=== PATIENT | male | born 1945 | race Caucasian/White ===

== ENCOUNTER → 2016-06-27 | Outpatient (CLI) | payer MEDICARE, OTHER | LOC: RAD 08:33 | PROVIDERS: ATTEND Internal Medicine | DX: M25.50 Pain in unspecified joint (principal); Z85.46 Personal history of malignant neoplasm of prostate | CPT/HCPCS: 78306; A9503; Q9969 ==

== ENCOUNTER → 2016-07-18 | Outpatient (CLI) | payer MEDICARE, OTHER | LOC: RAD 09:31 | PROVIDERS: ATTEND Podiatrist Foot & Ankle Surgery | DX: Q72.819 Congenital shortening of unspecified lower limb (principal) | CPT/HCPCS: 77073 ==

== ENCOUNTER 2018-08-31 07:50 | Day surgery (SDC) | payer MEDICARE, OTHER ==
[~2018-08-31 07:50] MED LIST: BUPIVACAINE HCL 0.75% INJ/PF (7.5 MG/1 ML) 10 ML SDV OD PRN; DORZOLAMIDE HCL 2%/TIMOLOL MALEAT 0.5% OPH SOLN 10 ML OD PRN; LIDOCAINE 4% INJ/PF (40 MG/ML) 5 ML AMPUL OD PRN; MIDAZOLAM 2 MG/2 ML INJ ONE
[2018-08-31] MEDS ORDERED: CHONDR SU A NA/HYALUR INTRAOC KIT (SURGICARE) ONE (08:14)
[2018-08-31] MEDS ORDERED: EPINEPHRINE INJ/PF 1 MG/1 ML AMPULE ONE (08:14)
[2018-08-31] MEDS: TETRACAINE HCL 0.5% OPH SOLN 0.6 ML DROPERETTE OD PRN ×2 (08:32→08:54)
[2018-08-31] MEDS: BESIFLOXACIN HCL 0.6% OPH SUSP 5 ML BOTTLE OD PRN ×3 (08:33→09:27)
[2018-08-31] MEDS: TROPICAMIDE 1% OPH SOLN 3 ML OD PRN ×3 (08:33→08:54)
[2018-08-31] MEDS: CYCLOPENTOLATE 0.2%/PHENYLEPHRINE 1% OPH SOLN 2 ML OD PRN ×3 (08:33→08:54)
[2018-08-31] MEDS: KETOROLAC TROMETHAMINE 0.45% 4 DROP/0.4 ML DROPERETTE OD PRN ×2 (08:34→10:11)
[2018-08-31] MEDS: LIDOCAINE 1% INJ-PF (10 MG/ML) 30 ML SDV ONE ×2 (09:08→09:12)
--- NOTE | 2018-08-31 12:54 | [facility] OPERATIVE REPORT E ---
[facility] Operative Report NAME: BERTO PEDRO AGE: 73Y DATE OF SURGERY: 08/31/2018 ROOM: PREOPERATIVE DIAGNOSIS: CATARACT, RIGHT EYE. POSTOPERATIVE DIAGNOSIS: CATARACT, RIGHT EYE. PROCEDURE PERFORMED: PHACOEMULSIFICATION WITH POSTERIOR CHAMBER INTRAOCULAR LENS, RIGHT EYE. SURGEON: PHILIPP CHAU MD ANESTHESIA: TOPICAL WITH MAC. INDICATIONS FOR SURGERY: Difficulty driving at night. PROCEDURE: The patient was brought to the Operating Room and placed on the operative table. Following tetracaine drops, topical anesthesia was administered. This consisted of instrument wipe pledgets soaked in a solution of 4% Xylocaine mixed with 0.75% Marcaine in a 1:2 ratio. A 2 x 1 cm pledget was placed in the superior fornix. A 1 x 1 cm pledget was placed in the inferior fornix. The eye was patched shut for 5 minutes. The patch was removed. The eye was sterilely prepped and draped in the usual manner. Lid speculum was placed in the eye. The pledgets were removed. 4-0 black silk sutures were placed around the superior and the inferior rectus muscles to be used as traction. A conjunctival peritomy was made at the 10 o'clock position. Hemostasis was obtained with bipolar cautery. A posterior limbal groove was created using a crescent knife and dissected anteriorly towards the cornea. A sharp point blade was used to create a paracentesis site at the 2 o'clock position. A 2.4 mm keratome was used to enter the anterior chamber through the groove. Viscoelastic was injected into the anterior chamber. An anterior capsulotomy was performed using Utrata forceps in a capsulorrhexis fashion. Hydrodissection and hydrodelineation were performed. Phacoemulsification was performed in [id number]-[id number] technique. A total of 5.30 CDE phaco time was used. Following this, the I/A unit was used to remove residual cortex. Viscoelastic was injected into the capsular bag. Intraocular lens model [id number], 16.0 diopters, serial number [id number] was placed in the capsular bag. The I/A unit was used to remove residual viscoelastic. The wound was seen to be watertight under high and low pressure, and no sutures were placed. The intraocular lens was well centered. The pressure was adjusted in the eye to normal pressure. The 4-0 black silk sutures and lid speculum were removed. The eye was shielded after Besivance drops were placed. The patient tolerated the procedure well and was sent to the Recovery Room in good condition. DICTATING PHYSICIAN: PHILIPP CHAU M.D. DICTATING PHYSICIAN: PHILIPP CHAU M.D. [id number] PHY#: [id number] ID: [id number] JOB#: [id number] ACCT: [id number] cc:PHILIPP CHAU M.D. >
--- NOTE | 2018-08-31 12:59 | [facility] DISCHARGE SUMMARY E ---
[facility] Discharge Summary NAME: BERTO PEDRO AGE: 73Y ADMITTED: 08/31/2018 DISCHARGED: 08/31/2018 FINAL DIAGNOSIS: CATARACT, RIGHT EYE HOSPITAL COURSE: The patient is a 73-year-old gentleman who underwent uneventful cataract extraction with intraocular lens implant, right eye on 08/31/2018. He will be discharged to home. He is instructed to resume preoperative medications, take Tylenol as needed for discomfort, to keep his eye shielded, to use Besivance, PROLENSA, and Durezol at 3 p.m. and 8 p.m., and to follow up in my office in 1 day. DICTATING PHYSICIAN: PHILIPP CHAU M.D. [id number] PHY#: [id number] ID: [id number] JOB#: [id number] ACCT: [id number] cc:PHILIPP CHAU M.D. >
== END 2018-08-31 10:18 | disposition home or self-care (01) ==
LOC: SC 07:50
PROVIDERS: ATTEND Ophthalmology
DX: H25.13 Age-related nuclear cataract, bilateral (principal); H16.223 Keratoconjunctivitis sicca, not specified as Sjogren's, bilateral; H40.013 Open angle with borderline findings, low risk, bilateral; E78.00 Pure hypercholesterolemia, unspecified; I10 Essential (primary) hypertension; I48.91 Unspecified atrial fibrillation; I05.9 Rheumatic mitral valve disease, unspecified; J44.9 Chronic obstructive pulmonary disease, unspecified; K21.9 Gastro-esophageal reflux disease without esophagitis; Z87.891 Personal history of nicotine dependence; Z88.0 Allergy status to penicillin; Z79.82 Long term (current) use of aspirin; Z79.899 Other long term (current) drug therapy; Z79.01 Long term (current) use of anticoagulants; Z85.46 Personal history of malignant neoplasm of prostate
CPT/HCPCS: 66984; V2632; J2250; J3490 ×4; A9270; J0171; 142

== ENCOUNTER 2018-09-21 06:41 | Day surgery (SDC) | payer MEDICARE, OTHER ==
[~2018-09-21 06:41] MED LIST changes: -BUPIVACAINE HCL 0.75% INJ/PF (7.5 MG/1 ML) 10 ML SDV OD PRN; +BUPIVACAINE HCL 0.75% INJ/PF (7.5 MG/1 ML) 10 ML SDV OS PRN; -DORZOLAMIDE HCL 2%/TIMOLOL MALEAT 0.5% OPH SOLN 10 ML OD PRN; +KETOROLAC TROMETHAMINE 0.45% 4 DROP/0.4 ML DROPERETTE OS PRN; -LIDOCAINE 4% INJ/PF (40 MG/ML) 5 ML AMPUL OD PRN; +LIDOCAINE 4% INJ/PF (40 MG/ML) 5 ML AMPUL OS PRN; -MIDAZOLAM 2 MG/2 ML INJ ONE
[2018-09-21] MEDS: CYCLOPENTOLATE 0.2%/PHENYLEPHRINE 1% OPH SOLN 2 ML OS PRN ×2 (07:06→07:19)
[2018-09-21] MEDS: TROPICAMIDE 1% OPH SOLN 3 ML OS PRN ×3 (07:06→07:39)
[2018-09-21] MEDS: BESIFLOXACIN HCL 0.6% OPH SUSP 5 ML BOTTLE OS PRN ×3 (07:07→08:22)
[2018-09-21] MEDS: TETRACAINE HCL 0.5% OPH SOLN 0.6 ML DROPERETTE OS PRN ×3 (07:08→07:59)
[2018-09-21] MEDS ORDERED: MIDAZOLAM 2 MG/2 ML INJ ONE (07:20)
[2018-09-21] MEDS: LIDOCAINE 1% INJ-PF (10 MG/ML) 30 ML SDV ONE ×2 (08:12)
[2018-09-21] MEDS: EPINEPHRINE INJ/PF 1 MG/1 ML AMPULE ONE ×2 (08:12)
[2018-09-21] MEDS: CHONDR SU A NA/HYALUR INTRAOC KIT (SURGICARE) ONE ×2 (08:12)
[2018-09-21] MEDS: DORZOLAMIDE HCL 2%/TIMOLOL MALEAT 0.5% OPH SOLN 10 ML OS PRN ×2 (08:22)
--- NOTE | 2018-09-21 08:44 | [facility] DISCHARGE SUMMARY E ---
[facility] Discharge Summary NAME: BERTO PEDRO AGE: 73Y ADMITTED: 09/21/2018 DISCHARGED: 09/21/2018 FINAL DIAGNOSIS: Cataract, left eye. HOSPITAL COURSE: The patient is a 73-year-old gentleman who underwent uneventful cataract extraction with intraocular lens implant, left eye, on 09/21/2018. He will be discharged to home. He was instructed to resume preoperative medications; to take Tylenol as needed for discomfort; to keep his eye shielded; to use Durezol, Prolensa, and Besivance at 3 p.m. and 8 p.m.; and to follow up in my office in 1 day. DICTATING PHYSICIAN: PHILIPP CHAU M.D. [id number] PHY#: [id number] ID: [id number] JOB#: [id number] ACCT: [id number] cc:PHILIPP CHAU M.D. >
--- NOTE | 2018-09-21 08:44 | [facility] OPERATIVE REPORT E ---
[facility] Operative Report NAME: BERTO PEDRO AGE: 73Y DATE OF SURGERY: 09/21/2018 ROOM: PREOPERATIVE DIAGNOSIS: Cataract, left eye. POSTOPERATIVE DIAGNOSIS: Cataract, left eye. PROCEDURE PERFORMED: Phacoemulsification with posterior chamber intraocular lens, left eye. SURGEON: PHILIPP CHAU M.D. ANESTHESIA: Topical with MAC. INDICATIONS FOR SURGERY: Difficulty with driving. PROCEDURE: The patient was brought to the operating room and placed on the operative table. Following tetracaine drops, topical anesthesia was administered. This consisted of instrument wipe pledgets soaked in a solution of 4% Xylocaine mixed with 0.75% Marcaine in a 1:2 ratio. A 2 x 1 cm pledget was placed in the superior fornix. A 1 x 1 cm pledget was placed in the inferior fornix. The eye was patched shut for 5 minutes. The patch was removed. The eye was sterilely prepped and draped in the usual manner. Lid speculum was placed in the eye. The pledgets were removed and 4-0 black silk sutures were placed around the superior and the inferior rectus muscles to be used as traction. A conjunctival peritomy was made at the 10 o'clock position. Hemostasis was obtained with bipolar cautery. A posterior limbal groove was created using a crescent knife and dissected anteriorly towards the cornea. A sharp point blade was used to create a paracentesis site at the 2 o'clock position. A 2.4 mm keratome was used to enter the anterior chamber through the groove. Viscoelastic was injected into the anterior chamber. An anterior capsulotomy was performed using Utrata forceps in a capsulorrhexis fashion. Hydrodissection and hydrodelineation were performed. Phacoemulsification was performed in [id number]-aofbhwe technique. Total phaco time was 5.53 CDE. Following this, the I/A unit was used to remove residual cortex. Viscoelastic was injected into the capsular bag. Intraocular lens model [id number], 16.5 diopters, serial number [id number], was placed in the capsular bag. The I/A unit was used to remove residual viscoelastic. The wound was seen to be watertight under high and low pressure, and no sutures were placed. The intraocular lens was well centered. The pressure was adjusted in the eye to normal pressure. The 4-0 black silk sutures and lid speculum were removed. The eye was shielded after Besivance drops were placed. The patient tolerated the procedure well and was sent to the recovery room in good condition. A drop of Cosopt was placed in the eye at the end of surgery. DICTATING PHYSICIAN: PHILIPP CHAU M.D. [id number] PHY#: [id number] ID: [id number] JOB#: [id number] ACCT: [id number] cc:PHILIPP CHAU M.D. >
== END 2018-09-21 08:58 | disposition home or self-care (01) ==
LOC: SC 06:41
PROVIDERS: ATTEND Ophthalmology
DX: H25.12 Age-related nuclear cataract, left eye (principal); Z96.1 Presence of intraocular lens; J44.9 Chronic obstructive pulmonary disease, unspecified; I10 Essential (primary) hypertension; K21.9 Gastro-esophageal reflux disease without esophagitis; I48.91 Unspecified atrial fibrillation; D64.9 Anemia, unspecified; Z79.01 Long term (current) use of anticoagulants; Z86.718 Personal history of other venous thrombosis and embolism; Z79.899 Other long term (current) drug therapy; Z85.46 Personal history of malignant neoplasm of prostate
CPT/HCPCS: 66984; V2632; J2250; J3490 ×4; A9270; J0171; 142

== ENCOUNTER 2018-12-16 16:22 | Emergency (ER) | payer MEDICARE, OTHER ==
[2018-12-16] MEDS ORDERED: IPRATROPIUM/ALBUTEROL 0.5-2.5 MG/3 ML AMPUL NEB ONE (16:40)
--- NOTE | 2018-12-16 16:42 | ER Document Report ---
ED General - General Mode of Arrival: Medic Information source: Patient, Emergency Med PersonnelDr. Castro, [facility] Records TRAVEL OUTSIDE OF THE [place] IN LAST 30 DAYS: No - HPI Onset: Other Onset/Duration: Gradual, Persistent, Worse Quality of pain: No pain Severity: None Pain Level: Denies Associated symptoms: Nonproductive cough, Fever, Shortness of breath. denies: Chest pain, Diarrhea, Headache, Leg swelling, Nausea, Vomiting Exacerbated by: Walking, Coughing Relieved by: Denies Similar symptoms previously: No Recently seen / treated by doctor: No <ROCKY NAIR - Last Filed: 12/17/18 00:51> <JOSE MONTGOMERY - Last Filed: 12/17/18 01:48> - General Stated Complaint: DIFFICULTY BREATHING Time Seen by Provider: 12/16/18 16:38 Primary Care Provider: NHI CHAU MD [ACTIVE STAFF] - Follow up as needed Notes: 73-year-old male with paroxysmal atrial fibrillation, peripheral vascular disease, hypertension, chronic back pain presents via EMS from Dr. Blanca's office after patient was found to be in A. fib with a heart rate between 120 and 150 and had O2 sats in the 50s. Patient states that he has had a cough for 3 days that has been associated with shortness of breath. He does also state that he has had chills and sweats. Patient is on Xarelto for peripheral vascular disease. He is in pain management for chronic back pain. (ROCKY NAIR) - Related Data Allergies/Adverse Reactions: Influenza Virus Vaccines [Influenza Virus Vaccine] Adverse Reaction (Severe, Verified 05/06/13 10:27) Syncope Penicillins Adverse Reaction (Severe, Verified 05/06/13 10:27) Syncope Past Medical History - General Information source: Patient, Emergency Med PersonnelDr. Castro, Outside Facility Records - Social History Smoking Status: Former Smoker Frequency of alcohol use: None Drug Abuse: None Lives with: Spouse/Significant other Family History: Reviewed & Not Pertinent Patient has suicidal ideation: No Patient has homicidal ideation: No - Past Medical History Cardiac Medical History: Reports: Hx Atrial Fibrillation, Hx Hypertension - MEDS Denies: Hx Heart Attack Pulmonary Medical History: Denies: Hx Asthma Neurological Medical History: Denies: Hx Cerebrovascular Accident, Hx Seizures GI Medical History: Denies: Hx Hepatitis, Hx Hiatal Hernia, Hx Ulcer Infectious Medical History: Denies: Hx Hepatitis Past Surgical History: Reports: Hx Orthopedic Surgery - right knee replacement. Denies: Hx Open Heart Surgery - LT SUBCLAVIAN OCCLUDED,NO SX REQUIRED, Hx Pacemaker <ROCKY NAIR - Last Filed: 12/17/18 00:51> Review of Systems <ROCKY NAIR - Last Filed: 12/17/18 00:51> - Review of Systems Notes: REVIEW OF SYSTEMS: CONSTITUTIONAL : Denies fever, chills, or sweats. Denies recent illness. Denies weight loss, recent hospitalizations. EENT: Denies visual changes, eye pain. Denies sore throat, oral lesions, difficulty swallowing. CARDIOVASCULAR: Denies chest pain. Denies palpitations. Denies lower extremity edema. RESPIRATORY: + cough. + shortness of breath, denies wheezing. GASTROINTESTINAL: Denies abdominal pain or distention. Denies nausea, vomiting, or diarrhea. Denies blood in vomitus, stools, or per rectum. Denies black, tarry stools. Denies constipation. GENITOURINARY: Denies difficulty urinating, painful urination, frequency, blood in urine, testicular pain or penile discharge. MUSCULOSKELETAL: Denies neck pain or stiffness. Denies joint pain or swelling. SKIN: Denies rash, lesions or sores. HEMATOLOGIC : Denies easy bruising or bleeding. LYMPHATIC: Denies swollen glands. NEUROLOGICAL: Denies confusion or altered mental status. Denies loss of consciousness. Denies dizziness or lightheadedness. Denies headache. Denies weakness or paralysis. Denies problems difficulty with ambulation, slurred speech. Denies sensory loss, numbness, or tingling. Denies seizures. PSYCHIATRIC: Denies anxiety or stress. Denies depression, suicidal ideation, or (ROCKY NAIR) Physical Exam <ROCKY NAIR - Last Filed: 12/17/18 00:51> - Vital signs Vitals: Temp 101.0 F H 12/16/18 16:38 - Notes Notes: PHYSICAL EXAMINATION: GENERAL: Ill-appearing, mild distress, on 4 L nasal cannula. HEAD: Atraumatic, normocephalic. EYES: Pupils equal round and reactive to light, extraocular movements intact, sclera anicteric, conjunctiva are normal. ENT: Nares patent, oropharynx clear without exudates. Moist mucous membranes. NECK: Normal range of motion, supple without lymphadenopathy LUNGS: Breath sounds clear to auscultation bilaterally and equal. No wheezes rales or rhonchi. Hypoxic, mild increased work of breathing, no accessory muscle use. Patient able to speak in full sentences. HEART: Tachycardic, regular rhythm, no murmurs. ABDOMEN: Soft, nontender, nondistended abdomen. No guarding, no rebound. No masses appreciated. Musculoskeletal: Normal range of motion, no pitting or edema. No cyanosis. NEUROLOGICAL: Cranial nerves grossly intact. Normal speech, normal gait. Normal sensory, motor exams PSYCH: Normal mood, normal affect. SKIN: Warm, Dry, normal turgor, no rashes or lesions noted. (ROCKY NAIR) Course - Laboratory Result Diagrams: 12/16/18 16:46 12/16/18 16:46 - Diagnostic Test Radiology reviewed: Image reviewed, Reports reviewed - EKG Interpretation by Mi EKG shows normal: Sinus rhythm Rate: Tachycardia Rhythm: PVC's When compared to previous EKG there are: Changes noted <ROCKY NAIR - Last Filed: 12/17/18 00:51> - Laboratory Result Diagrams: 12/16/18 16:46 12/16/18 16:46 <JOSE MONTGOMERY - Last Filed: 12/17/18 01:48> - Re-evaluation Re-evalutation: Chest X-Ray 12/16/18 16:39 IMPRESSION: Increased coarse interstitial changes -emphysema bilaterally. No consolidation or pleural effusion. Chest/Abdomen CTA 12/16/18 16:40 IMPRESSION: No emboli visualized in the main pulmonary arteries or the segmental branches.No consolidation or pleural effusions. Significant increased interval interstitial thickening -emphysema and some areas of fibrosis, upper lobe predominance. Laboratory 12/16/18 12/16/18 12/16/18 16:46 16:46 16:46 WBC 11.6 H RBC 3.83 L Hgb 13.4 L Hct 39.0 MCV 102 H MCH 35.1 H MCHC 34.5 RDW 13.6 Plt Count 181 Seg Neutrophils % 87.3 H Lymphocytes % 6.4 L Monocytes % 6.2 Eosinophils % 0.0 Basophils % 0.1 Absolute Neutrophils 10.2 H Absolute Lymphocytes 0.7 Absolute Monocytes 0.7 Absolute Eosinophils 0.0 Absolute Basophils 0.0 PT 15.5 H INR 1.22 Carbonic Acid HCO3/H2CO3 Ratio ABG pH ABG pCO2 ABG pO2 ABG HCO3 ABG Total CO2 ABG O2 Saturation ABG Base Excess FiO2 Sodium 125.4 L Potassium 4.4 Chloride 89 L Carbon Dioxide 24 Anion Gap 12 BUN 14 Creatinine 0.72 Est GFR ( Amer) > 60 Est GFR (Non-Af Amer) > 60 Glucose 171 H Lactic Acid Calcium 8.8 Total Bilirubin 1.8 H Direct Bilirubin 0.6 H Neonat Total Bilirubin Not Reportable Neonat Direct Bilirubin Not Reportable Neonat Indirect Bili Not Reportable AST 59 ALT 25 Alkaline Phosphatase 91 Creatine Kinase CK-MB (CK-2) Troponin I NT-Pro-B Natriuret Pep Total Protein 6.3 Albumin 3.7 Urine Color Urine Appearance Urine pH Ur Specific Ina Urine Protein Urine Glucose (UA) Urine Ketones Urine Blood Urine Nitrite Urine Bilirubin Urine Urobilinogen Ur Leukocyte Esterase Urine WBC (Auto) Urine RBC (Auto) U Hyaline Cast (Auto) Squamous Epi Cells Auto Urine Mucus (Auto) Urine Ascorbic Acid 12/16/18 12/16/18 12/16/18 16:46 16:46 16:46 WBC RBC Hgb Hct MCV MCH MCHC RDW Plt Count Seg Neutrophils % Lymphocytes % Monocytes % Eosinophils % Basophils % Absolute Neutrophils Absolute Lymphocytes Absolute Monocytes Absolute Eosinophils Absolute Basophils PT INR Carbonic Acid 0.84 L HCO3/H2CO3 Ratio 25:1 ABG pH 7.50 H ABG pCO2 27.9 L ABG pO2 71.4 L ABG HCO3 21.3 ABG Total CO2 22.2 L ABG O2 Saturation 95.8 ABG Base Excess -0.6 FiO2 15 Sodium Potassium Chloride Carbon Dioxide Anion Gap BUN Creatinine Est GFR ( Amer) Est GFR (Non-Af Amer) Glucose Lactic Acid 2.8 H Calcium Total Bilirubin Direct Bilirubin Neonat Total Bilirubin Neonat Direct Bilirubin Neonat Indirect Bili AST ALT Alkaline Phosphatase Creatine Kinase CK-MB (CK-2) Troponin I 0.416 NT-Pro-B Natriuret Pep 3850 H Total Protein Albumin Urine Color Urine Appearance Urine pH Ur Specific Ina Urine Protein Urine Glucose (UA) Urine Ketones Urine Blood Urine Nitrite Urine Bilirubin Urine Urobilinogen Ur Leukocyte Esterase Urine WBC (Auto) Urine RBC (Auto) U Hyaline Cast (Auto) Squamous Epi Cells Auto Urine Mucus (Auto) Urine Ascorbic Acid 07/18/19 07/18/19 07/18/19 18:20 18:20 21:07 WBC RBC Hgb Hct MCV MCH MCHC RDW Plt Count Seg Neutrophils % Lymphocytes % Monocytes % Eosinophils % Basophils % Absolute Neutrophils Absolute Lymphocytes Absolute Monocytes Absolute Eosinophils Absolute Basophils PT INR Carbonic Acid HCO3/H2CO3 Ratio ABG pH ABG pCO2 ABG pO2 ABG HCO3 ABG Total CO2 ABG O2 Saturation ABG Base Excess FiO2 Sodium Potassium Chloride Carbon Dioxide Anion Gap BUN Creatinine Est GFR ( Amer) Est GFR (Non-Af Amer) Glucose Lactic Acid Calcium Total Bilirubin Direct Bilirubin Neonat Total Bilirubin Neonat Direct Bilirubin Neonat Indirect Bili AST ALT Alkaline Phosphatase Creatine Kinase CK-MB (CK-2) 4.09 Troponin I 0.527 0.502 NT-Pro-B Natriuret Pep Total Protein Albumin Urine Color YELLOW Urine Appearance CLEAR Urine pH 6.0 Ur Specific Ina 1.017 Urine Protein NEGATIVE Urine Glucose (UA) NEGATIVE Urine Ketones TRACE H Urine Blood NEGATIVE Urine Nitrite NEGATIVE Urine Bilirubin NEGATIVE Urine Urobilinogen 4.0 H Ur Leukocyte Esterase NEGATIVE Urine WBC (Auto) 0 Urine RBC (Auto) 1 U Hyaline Cast (Auto) 1 Squamous Epi Cells Auto <1 Urine Mucus (Auto) RARE Urine Ascorbic Acid NEGATIVE 12/16/18 21:07 WBC RBC Hgb Hct MCV MCH MCHC RDW Plt Count Seg Neutrophils % Lymphocytes % Monocytes % Eosinophils % Basophils % Absolute Neutrophils Absolute Lymphocytes Absolute Monocytes Absolute Eosinophils Absolute Basophils PT INR Carbonic Acid HCO3/H2CO3 Ratio ABG pH ABG pCO2 ABG pO2 ABG HCO3 ABG Total CO2 ABG O2 Saturation ABG Base Excess FiO2 Sodium Potassium Chloride Carbon Dioxide Anion Gap BUN Creatinine Est GFR ( Amer) Est GFR (Non-Af Amer) Glucose Lactic Acid Calcium Total Bilirubin Direct Bilirubin Neonat Total Bilirubin Neonat Direct Bilirubin Neonat Indirect Bili AST ALT Alkaline Phosphatase Creatine Kinase 117 CK-MB (CK-2) Troponin I NT-Pro-B Natriuret Pep Total Protein Albumin Urine Color Urine Appearance Urine pH Ur Specific Ina Urine Protein Urine Glucose (UA) Urine Ketones Urine Blood Urine Nitrite Urine Bilirubin Urine Urobilinogen Ur Leukocyte Esterase Urine WBC (Auto) Urine RBC (Auto) U Hyaline Cast (Auto) Squamous Epi Cells Auto Urine Mucus (Auto) Urine Ascorbic Acid Temp Pulse Resp BP Pulse Ox 98.4 F 31 H 124/73 95 12/16/18 18:00 12/16/18 21:08 12/16/18 21:08 12/16/18 21:08 Chest X-Ray 12/16/18 16:39 IMPRESSION: Increased coarse interstitial changes -emphysema bilaterally. No consolidation or pleural effusion. Chest/Abdomen CTA 12/16/18 16:40 IMPRESSION: No emboli visualized in the main pulmonary arteries or the segmental branches.No consolidation or pleural effusions. Significant increased interval interstitial thickening -emphysema and some areas of fibrosis, upper lobe predominance. 12/16/18 16:41 Bedside ultrasound was performed and showed no pericardial effusion, evidence of tamponade. There are multiple B-lines in the lung castro bilaterally which could be interstitial edema. Upon arrival patient was hypoxic on 4 L. He was placed on a nonrebreather and is now 97%. Patient is visibly dyspneic but able to speak in full sentences. Patient's lung sounds are clear on my exam and wit hout wheezing. EMS reports the same lung exam. Patient has not been administered any breathing treatments prior to arrival. Patient found to be febrile, Tylenol administered. Ceftriaxone administered for suspected pneumonia. CTA obtained and without evidence of PE, pleural effusion, pericardial effusion, does show bilateral emphysema. He 12/16/18 17:06 Patient paced on BiPAP. Patient had immediate improvement. Denies chest pain. Former smoker (18years). 12/16/18 20:[address] Leahy regarding admission. After review of the patient's EKG, medical history he is concerned that the patient may need require cardiac catheterization which we do not have until next week. Patient does have a cover seamer who is associated with [facility] which was contacted for transfer. I did speak to the hospitalist there who states that the patient is not a candidate at this time for cardiac catheterization due to his hypoxia and uncontrolled COPD. I contacted Dr. Leahy again to update him and he is requesting additional cardiac enzymes, aspirin, Lipitor. Patient requesting to come off of BiPAP and as a trial this was done and patient immediately had a desaturation down to 82%. Patient continually denies chest pain. He states that he feels better and his shortness of breath has improved. 12/16/18 21:49 Dr. Leahy declining admission due to lack of ICU beds. Patient has requested that I contact [facility] in [facility]. 12/16/18 22:00 Spoke to the clinical coordinator at [facility] who states that they do not have the capabilities of cardiac intervention if the patient requires it. [place] contacted for transfer. 12/16/18 22:17 I did speak to Dr. Parish at [facility] who has accepted the patient for transfer. Hospital is on pre-regional diversion and states that it could be 24 hours before the patient is transferred. Patient has been reevaluated multiple times and states that he is feeling better. 12/16/18 22:40 Home medications ordered. 12/16/18 22:43 12/17/18 00:44 (ROCKY NAIR) 12/17/18 00:11 Nursing staff asked me if the patient could go by CPAP as opposed to BiPAP being that this is all that is available to transport. I did review the patient's labs and his blood gas did not show significant hypercapnia. He is not acidotic. I did re-evaluate him and his lung castro are clear without any current wheezing. I therefore feel that it is safe for him to go by CPAP. 12/17/18 01:48 Transport team is here. I did reevaluate the patient. Lung castro remain clear except for some mild rales in the bases. Patient oxygenation currently on the B iPAP is 95% with the FiO2 at 70%. We will switch him over to CPAP with transport team to make sure that he remained stable. If his oxygenation remaines stable with the transport teams CPAP than the patient will be stable for transfer. (JOSE MONTGOMERY) - Vital Signs Vital signs: Temp Pulse Resp BP Pulse Ox 98.4 F 28 H 129/64 H 95 12/17/18 01:15 12/17/18 01:01 12/17/18 01:01 12/17/18 01:01 - Laboratory Laboratory results interpreted by me: 12/16/18 12/16/18 12/16/18 16:46 16:46 16:46 WBC 11.6 H RBC 3.83 L Hgb 13.4 L MCV 102 H MCH 35.1 H Seg Neutrophils % 87.3 H Lymphocytes % 6.4 L Absolute Neutrophils 10.2 H PT 15.5 H Carbonic Acid ABG pH ABG pCO2 ABG pO2 ABG Total CO2 Sodium 125.4 L Chloride 89 L Glucose 171 H Lactic Acid Total Bilirubin 1.8 H Direct Bilirubin 0.6 H NT-Pro-B Natriuret Pep Urine Ketones Urine Urobilinogen 12/16/18 12/16/18 12/16/18 16:46 16:46 16:46 WBC RBC Hgb MCV MCH Seg Neutrophils % Lymphocytes % Absolute Neutrophils PT Carbonic Acid 0.84 L ABG pH 7.50 H ABG pCO2 27.9 L ABG pO2 71.4 L ABG Total CO2 22.2 L Sodium Chloride Glucose Lactic Acid 2.8 H Total Bilirubin Direct Bilirubin NT-Pro-B Natriuret Pep 3850 H Urine Ketones Urine Urobilinogen 12/16/18 18:20 WBC RBC Hgb MCV MCH Seg Neutrophils % Lymphocytes % Absolute Neutrophils PT Carbonic Acid ABG pH ABG pCO2 ABG pO2 ABG Total CO2 Sodium Chloride Glucose Lactic Acid Total Bilirubin Direct Bilirubin NT-Pro-B Natriuret Pep Urine Ketones TRACE H Urine Urobilinogen 4.0 H Critical Care Note - Critical Care Note Total time excluding time spent on procedures (mins): 45 - Minutes of critical care time spent in direct contact evaluating and reevaluating the patient, treating symptoms, reviewing labs and studies and speaking with family and consultants excluding any procedures <ROCKY NAIR - Last Filed: 12/17/18 00:51> Discharge <ROCKY NAIR - Last Filed: 12/17/18 00:51> <JOSE MONTGOMERY - Last Filed: 12/17/18 01:48> - Discharge Clinical Impression: Hypoxia, History of peripheral vascular disease, Elevated troponin, Sinus tachycardia, BRIAN (obstructive sleep apnea) Respiratory failure Qualifiers: Chronicity: acute Respiratory failure complication: hypoxia Qualified Code(s): J96.01 - Acute respiratory failure with hypoxia Fever Qualifiers: Fever type: unspecified Qualified Code(s): R50.9 - Fever, unspecified Dyspnea Qualifiers: Dyspnea type: acute respiratory distress Qualified Code(s): R06.03 - Acute respiratory distress COPD (chronic obstructive pulmonary disease) Qualifiers: COPD type: unspecified COPD Qualified Code(s): J44.9 - Chronic obstructive pulmonary disease, unspecified Condition: Fair Disposition: [facility] Referrals: NHI CHAU MD [ACTIVE STAFF] - Follow up as needed
[2018-12-16] MEDS ORDERED: CEFTRIAXONE 1 GM/D5W RTU 1 GM/50 ML RTUPB IV ONE ×2 (17:09→17:15)
[2018-12-16 17:11] LABS: ABSOLUTE LYMPHOCYTES (AUTO) 0.7 10^3/uL (0.5-4.7); ABSOLUTE MONOCYTES (AUTO) 0.7 10^3/uL (0.1-1.4); ABSOLUTE NEUT (AUTO) 10.2 10^3/uL (1.7-8.2); BASOPHILS % (AUTO) 0.1 % (0-2); HEMOGLOBIN 13.4 g/dL (13.5-17.0); LYMPHOCYTES % (AUTO) 6.4 % (13-45); MEAN CORPUSCULAR HEMOGLOBIN 35.1 pg (27.0-33.4); MEAN CORPUSCULAR HGB CONC 34.5 g/dL (32.0-36.0); MEAN CORPUSCULAR VOLUME 102 fl (80-97); MONOCYTES % (AUTO) 6.2 % (3-13); PLATELET COUNT 181 10^3/uL (150-450); RED BLOOD COUNT 3.83 10^6/uL (4.35-5.55); RED CELL DISTRIBUTION WIDTH 13.6 % (11.5-14.0); SEGMENTED NEUTROPHILS % (AUTO) 87.3 % (42-78); TOTAL CELLS COUNTED % (AUTO) 100 %; WHITE BLOOD COUNT 11.6 10^3/uL (4.0-10.5)
[2018-12-16 17:12] LABS: ARTERIAL BLOOD BASE EXCESS -0.6 mmol/L; ARTERIAL BLOOD H2CO3 0.84 mmol/L (1.05-1.35); ARTERIAL BLOOD HCO3 21.3 mmol/L (20-24); ARTERIAL BLOOD O2 SATURATION 95.8 % (94-98); ARTERIAL BLOOD PCO2 27.9 mmHg (35-45); ARTERIAL BLOOD PO2 71.4 mmHg (80-100); ARTERIAL BLOOD TOTAL CO2 22.2 mmol/L (23-27)
--- NOTE | 2018-12-16 17:12 | RADIOLOGY REPORT (SQ) ---
EXAM DESCRIPTION: CHEST SINGLE VIEW COMPLETED DATE/TIME: 12/16/2018 4:57 pm REASON FOR STUDY: sob COMPARISON: 04/08/2015 TECHNIQUE: Single frontal radiographic view of the chest acquired. NUMBER OF VIEWS: One view. LIMITATIONS: None. FINDINGS: LUNGS AND PLEURA: No pneumothorax. Increased coarse interstitial changes -emphysema bilat erally. No consolidation or pleural effusion. MEDIASTINUM AND HILAR STRUCTURES: Stable. HEART AND VASCULAR STRUCTURES: Stable. BONES: No acute findings. HARDWARE: None in the chest. OTHER: No other significant finding. IMPRESSION: Increased coarse interstitial changes -emphysema bilaterally. No consolidation or pleur al effusion. TECHNICAL DOCUMENTATION: JOB ID: [id number] [id number] 2010 [employer]- All Rights Reserved Reading location - IP/workstation name: Context app
[2018-12-16 17:15] LABS: ARTERIAL BLOOD FIO2 15
[2018-12-16 17:25] LABS: INTERNATIONAL RATION (INR) 1.22; PROTHROMBIN TIME 15.5 SEC (11.4-15.4)
[2018-12-16 17:33] LABS: ALANINE AMINOTRANSFERASE 25 U/L (21-72); ALBUMIN 3.7 g/dL (3.5-5.0); ALKALINE PHOSPHATASE 91 U/L (38-126); ANION GAP 12 (5-19); ASPARTATE AMINO TRANSFERASE 59 U/L (17-59); BILIRUBIN,DIRECT 0.6 mg/dL (0.0-0.4); BILIRUBIN,TOTAL 1.8 mg/dL (0.2-1.3); BLOOD UREA NITROGEN 14 mg/dL (7-20); CALCIUM 8.8 mg/dL (8.4-10.2); CARBON DIOXIDE 24 mmol/L (22-30); CHLORIDE 89 mmol/L (98-107); GLUCOSE 171 mg/dL (75-110); POTASSIUM 4.4 mmol/L (3.6-5.0); SODIUM 125.4 mmol/L (137-145); TOTAL PROTEIN 6.3 g/dL (6.3-8.2)
[2018-12-16 17:48] LABS: TROPONIN I 0.416 ng/mL
--- NOTE | 2018-12-16 18:33 | RADIOLOGY REPORT (SQ) ---
EXAM DESCRIPTION: CTA CHEST COMPLETED DATE/TIME: 12/16/2018 6:14 pm REASON FOR STUDY: hypoxia dyspnea COMPARISON: 04/08/2015 TECHNIQUE: CT scan of the chest performed using helical scanning technique with dynamic intravenous contrast injection. Images reviewed with lung, soft tissue and bone windows. Reconstructed coronal and sagittal MPR images reviewed. Additional 3 dimensional post-processing performed to develop Maximal Intensity Projection images (NV P). All images stored on PACS. All CT scanners at this facility use dose modulation, iterative reconstruction, and/or weight based d osing when appropriate to reduce radiation dose to as low as reasonably achievable (ALARA). [facility]: Dose Right [facility]: CareDose [facility]: Dose Right [facility]: Teradose 4D [facility]: [employer] CONTRAST TYPE AND DOSE: contrast/concentration: Isovue 350.00 mg/ml; Total Contrast Delivered: 74.0 ml; Total Saline Delivered: 85.0 ml Contrast bolus optimized for the pulmonary arteries. Not diagnostic for the aorta. RENAL FUNCTION: GFR > 60. RADIATION DOSE: CT Rad equipment meets quality standard of care and radiation dose reduction techniq ues were employed. CTDIvol: 17.8 - 33.1 mGy. DLP: 787 mGy-cm. . LIMITATIONS: None. FINDINGS: LUNGS AND PLEURA: No pneumothorax. No consolidation or pleural effusions. Significant i ncreased interval interstitial thickening -emphysema and some areas of fibrosis, upper lobe predomina nce. AORTA AND GREAT VESSELS: No aneurysm. Contrast bolus not optimized for the aorta. HEART: No pericardial effusion. Moderate coronary artery calcifications. PULMONARY ARTERIES: No emboli visualized in the main pulmonary arteries or the segmental branches. HILAR AND MEDIASTINAL STRUCTURES: Scattered small nodes. HARDWARE: None in the chest. UPPER ABDOMEN: No significant findings. Limited exam. THYROID AND OTHER SOFT TISSUES: No masses. No adenopathy. BONES: No acute or significant finding. 3D MIPS: Confirm above findings. OTHER: No other significant finding. IMPRESSION: No emboli visualized in the main pulmonary arteries or the segmental branches.No consoli dation or pleural effusions. Significant increased interval interstitial thickening -emphysema and s ome areas of fibrosis, upper lobe predominance. COMMENT: Quality ID # [id number]: Final reports with documentation of one or more dose reduction techniques (e.g., Automated exposure control, adjustment of the mA and/or kV according to patient size, use of iterative reconstruction technique) TECHNICAL DOCUMENTATION: JOB ID: [id number] [place]-[id number] 2010 [employer]- All Rights Reserved Reading location - IP/workstation name: [email or web address]
[2018-12-16 18:52] LABS: APPEARANCE,URINE CLEAR; BILIRUBIN,URINE NEGATIVE (NEGATIVE); COLOR,URINE YELLOW; GLUCOSE, URINE NEGATIVE (NEGATIVE); KETONES,URINE TRACE mg/dL (NEGATIVE); LEUKOCYTE ESTERASE,URINE NEGATIVE (NEGATIVE); NITRITE,URINE NEGATIVE (NEGATIVE); PROTEIN,URINE NEGATIVE (NEGATIVE); URINE SPECIFIC GRAVITY 1.017
[2018-12-16] MEDS ORDERED: ASPIRIN 81 MG TABLET, CHEWABLE PO ONE (20:48)
[2018-12-16] MEDS ORDERED: ATORVASTATIN CALCIUM 40 MG TABLET PO ONE (20:49)
[2018-12-16 22:09] LABS: CREATINE KINASE MB 4.09 ng/mL (<4.55); TROPONIN I 0.502 ng/mL
[2018-12-16] MEDS ORDERED: GABAPENTIN 300 MG CAPSULE PO SCH (22:30)
[2018-12-16] MEDS ORDERED: FLECAINIDE ACETATE 100 MG TABLET PO SCH (22:30)
[2018-12-16] MEDS ORDERED: FLECAINIDE ACETATE 100 MG TABLET ONE (22:55)
[2018-12-17] MEDS ORDERED: METHYLPREDNISOLONE INJ 125 MG/2 ML SDV IV ONE (00:41)
[2018-12-17] MEDS ORDERED: IPRATROPIUM/ALBUTEROL 0.5-2.5 MG/3 ML AMPUL NEB SCH (00:45)
[2018-12-17 01:10] VITALS: BP 129/64
[2018-12-17] MEDS ORDERED: CEFTRIAXONE 1 GM/D5W RTU 1 GM/50 ML RTUPB IV ONE (07:00)
--- NOTE | 2018-12-17 08:28 | EKG REPORT ---
SEVERITY:- ABNORMAL ECG - SINUS TACHYCARDIA MULTIFORM VENTRICULAR PREMATURE COMPLEXES : Confirmed by: Yunior Raygoza MD 17-Dec-2018 08:27:39
[2018-12-17] MEDS ORDERED: FLECAINIDE ACETATE 100 MG TABLET PO SCH (10:00)
[2018-12-17] MEDS ORDERED: ASPIRIN 81 MG TABLET, CHEWABLE PO SCH (10:00)
[2018-12-17] MEDS ORDERED: GABAPENTIN 300 MG CAPSULE PO SCH (10:00)
[2018-12-17] MEDS ORDERED: RIVAROXABAN 15 MG TABLET PO SCH (22:00)
== END 2018-12-17 01:35 | disposition short-term general hospital (02) ==
LOC: ER 16:22
DX: J96.01 Acute respiratory failure with hypoxia (principal); I73.9 Peripheral vascular disease, unspecified; R79.89 Other specified abnormal findings of blood chemistry; R00.0 Tachycardia, unspecified; G47.33 Obstructive sleep apnea (adult) (pediatric); R50.9 Fever, unspecified; M54.9 Dorsalgia, unspecified; G89.29 Other chronic pain; J44.9 Chronic obstructive pulmonary disease, unspecified; I48.91 Unspecified atrial fibrillation; I10 Essential (primary) hypertension
CPT/HCPCS: 93005; 94640 ×2; 99291; 96375; 96365; 36415; 87040; 87086; 82553; 82962; 82803; 82550; 85610; 87077; 80053; 81001; 84484; 87186; 83605; 83880; 71045; 71275; 93010; 94660 ×2; A9270 ×5; J2930; J0696; J3490; J7620

== ENCOUNTER → 2018-12-16 | Outpatient (CLI) | payer MEDICARE, OTHER ==
[2018-12-16 15:48] LABS: ABSOLUTE BASOPHILS # (AUTO) 0.1 10^3/uL (0.0-0.2); ABSOLUTE LYMPHOCYTES (AUTO) 1.2 10^3/uL (0.5-4.7); ABSOLUTE NEUT (AUTO) 11.7 10^3/uL (1.7-8.2); BASOPHILS % (AUTO) 0.4 % (0-2); EOSINOPHILS % (AUTO) 0.1 % (0-6); HEMOGLOBIN 14.8 g/dL (13.5-17.0); LYMPHOCYTES % (AUTO) 8.4 % (13-45); MEAN CORPUSCULAR HEMOGLOBIN 34.9 pg (27.0-33.4); MEAN CORPUSCULAR HGB CONC 34.3 g/dL (32.0-36.0); MEAN CORPUSCULAR VOLUME 102 fl (80-97); MONOCYTES % (AUTO) 7.2 % (3-13); PLATELET COUNT 204 10^3/uL (150-450); RED BLOOD COUNT 4.22 10^6/uL (4.35-5.55); RED CELL DISTRIBUTION WIDTH 13.3 % (11.5-14.0); SEGMENTED NEUTROPHILS % (AUTO) 83.9 % (42-78); TOTAL CELLS COUNTED % (AUTO) 100 %
== END ==
LOC: OD 14:47
PROVIDERS: ATTEND Pain Medicine Interventional Pain Medicine
DX: N39.0 Urinary tract infection, site not specified (principal)
CPT/HCPCS: 36415; 85025